=== PATIENT | female | born 1970 | race Caucasian/White ===

== ENCOUNTER 2019-04-07 10:35 | Day surgery (SDC) | payer BC, OTHER ==
--- NOTE | 2019-04-07 09:51 | PCM.PREANE ---
Preanesthetic Assessment - Anesthesia/Transfusion/Family Hx Anesthesia History: Prior Anesthesia Without Reaction Family History of Anesthesia Reaction: No Transfusion History: No Prior Transfusion(s) Intubation History: Unknown - Review of Systems General: No Symptoms, Fatigue Pulmonary: No Symptoms (Smoker: 1ppd times 30 years(Quit Date: 03/22/2019)- nicotine patch on.) Cardiovascular: No Symptoms Gastrointestinal: No Symptoms (GERD-on prilosec) Neurological: No Symptoms (mid back discomfort noted on occasion: back muscles.) Other: Reports: None, Throat Pain (2/10), Neck Pain (3/10) - Physical Assessment NPO Status Date: 04/06/19 NPO Status Time: 22:00 Vital Signs: HR:79 BP:114/47 Resp:16 Sat:97% Temp:98.5 Height: 1.6 m Weight: 58.513 kg ASA Class: 2 Mental Status: Alert & Oriented x3 Airway Class: Mallampati = 2 Dentition: Reports: Normal Dentition, Caries Thyro-Mental Finger Breadths: 3 Mouth Opening Finger Breadths: 3 (History of TMJ/jaw surgery) ROM/Head Extension: Full Lungs: Clear to Auscultation, Normal Respiratory Effort Cardiovascular: Regular Rate, Regular Rhythm, No Murmurs - Lab Values: All labs reviewed and noted and within acceptable ranges to proceed with scheduled procedure. - Allergies Allergies/Adverse Reactions: Allergies Allergy/AdvReac Type Severity Reaction Status Date / Time No Known Allergies Allergy Verified 04/04/19 13:54 - Anesthesia Plan Pre-Op Medication Ordered: None - Acknowledgements Anesthesia Type Planned: MAC Pt an Appropriate Candidate for the Planned Anesthesia: Yes Alternatives and Risks of Anesthesia Discussed w Pt/Guardian: Yes Pt/Guardian Understands and Agrees with Anesthesia Plan: Yes PreAnesthesia Questionnaire - Past Health History Medical/Surgical History: Denies Medical/Surgical History Cardiovascular History: Reports: None Respiratory History: Reports: None Gastrointestinal History: Reports: GERD Genitourinary History: Reports: None [employer]PERATOR History: Reports: None Musculoskeletal History: Reports: None Neurological History: Reports: None Psychiatric History: Reports: None Endocrine/Metabolic History: Reports: None Hematologic History: Reports: None Immunologic History: Reports: None Oncologic (Cancer) History: Reports: None Dermatologic History: Reports: None - Past Surgical History Head Surgeries/Procedures: Reports: None HEENT Surgical History: Reports: Oral Surgery, Other (See Below) Other HEENT Surgeries/Procedures: tmj surgery with jaw reconstruction Cardiovascular Surgical History: Reports: None Respiratory Surgical History: Reports: None GI Surgical History: Reports: None Female Surgical History: Reports: Breast Biopsy Male Surgical History: Reports: None Endocrine Surgical History: Reports: None Neurological Surgical History: Reports: None Musculoskeletal Surgical History: Reports: None Oncologic Surgical History: Reports: None Dermatological Surgical History: Reports: None - SUBSTANCE USE Smoking Status *Q: Current Every Day Smoker Recreational Drug Use History: No - HOME MEDS Home Medications: Home Meds Nicotine [Nicotine Patch] 21 mg TOP DAILY 04/04/19 [History] Omeprazole 40 mg PO DAILY 04/04/19 [History] Triamcinolone Acetonide [Triamcinolone Acetonide 0.025%] 1 dose TOP BID [History] - CURRENT (IN HOUSE) MEDS Current Meds: Current Medications Benzocaine (Hurricaine 20% [place]) 0 ml MUCMEM ASDIRECTED PRN PRN Reason: EGD Stop: 04/07/19 18:00 Lactated Ringer's (Ringers, Lactated) 1,000 mls @ 125 mls/hr IV ASDIRECTED SAYRA Stop: 04/07/19 23:00 Lidocaine/Sodium Bicarbonate (Buffered Lidocaine 1% In Ns 8.4%) 0.25 ml IDERM ONETIME PRN PRN Reason: Prior to IV Start Stop: 04/07/19 18:00 Sodium Chloride (Saline Flush) 10 ml FLUSH ASDIRECTED PRN PRN Reason: Keep Vein Open Stop: 04/07/19 18:00 Discontinued Medications Lidocaine HCl (Xylocaine-Mpf 1%) Confirm Administered Dose 4 mls @ as directed .ROUTE .STK-MED ONE Stop: 04/07/19 08:54 Propofol (Diprivan 20 Ml) Confirm Administered Dose 200 mg .ROUTE .STK-MED ONE Stop: 04/07/19 08:54
[~2019-04-07 10:35] MED LIST: Benzocaine 20% Oral Spray 59.2 ML Canister MUCMEM PRN; Lactated Ringers 1,000 ML IV SCH; Lidocaine 1% 4 ML ONE; Lidocaine 1%/Sod Bicarbonate in NS 8.4% 1 ML Syringe IDERM PRN; Propofol 200 MG/20 ML SDV ONE; Sodium Chloride 0.9% 10 ML Syringe FLUSH PRN
--- NOTE | 2019-04-07 12:16 | PCM.POSTAN ---
POST ANESTHESIA ASSESSMENT - MENTAL STATUS Mental Status: Alert - VITAL SIGNS Vital Signs: Last Vital Signs 85/66 98 84 16 97.2 Temp 36.9 C 04/07/19 10:50 Pulse 79 04/07/19 10:50 Resp 16 04/07/19 10:50 BP 114/47 L 04/07/19 10:50 Pulse Ox 97 04/07/19 10:50 - RESPIRATORY Respiratory Status: Respiratory Rate WNL, Airway Patent, O2 Saturation Stable - CARDIOVASCULAR CV Status: Pulse Rate WNL, Blood Pressure Stable - GASTROINTESTINAL GI Status: No Symptoms - PAIN Pain Score: 0 - POST OP HYDRATION Hydration Status: Adequate & Stable
[2019-04-07 12:40] VITALS: BP 98/74; PULSE 68
--- NOTE | 2019-04-07 13:07 | PROC ---
DATE OF OPERATION: 04/07/2019 SURGEON: Ryan Rodríguez MD PREOPERATIVE DIAGNOSES: 1. Heartburn. 2. Sore throat. POSTOPERATIVE DIAGNOSES: 1. Mild gastritis. 2. Small hiatal hernia. 3. Mild esophagitis. OPERATION PERFORMED: Esophagogastroduodenoscopy with biopsies. ESTIMATED BLOOD LOSS: Minimal. INDICATIONS AND CONSENT: The patient is a 48-year-old female who started having some persistent sore throat especially when supine at night. The patient also has been having some mild dysphagia without choking, was evaluated in clinic, and EGD was recommended for evaluation. Risks, benefits, and alternatives including perforation and bleeding were discussed with the patient, and informed consent was obtained. DESCRIPTION OF PROCEDURE: The patient was taken to the operating room, placed in left lateral decubitus position. Following induction of anesthesia, a time-out was performed. Then, the scope was advanced through the mouth. Vocal cords in the throat were observed and did not appear to be inflamed. The scope was passed into the esophagus, which appeared fairly normal until we got to distal esophagus, which had mild esophagitis. The Z-line was at 32 cm from the incisors and appeared to be regular and normal. The scope was advanced all the way down to the second portion of the duodenum, which was normal and the bulb was normal as well. Upon withdrawal, the antrum seemed to be diffusely inflamed with mild erythema. Therefore, biopsies were taken here for H. pylori examination. Upon retroflexion, we observed a small hiatal hernia of about 3 cm to 4 cm. There were no Nicolas ulcers. Withdrawal of the scope down back to the distal esophagus. We performed biopsies of the GE junction with cold forceps in the distal esophagus, with cold forceps due to mild inflammation of the distal esophagus. Then, upon withdrawal since the patient was complaining of dysphagia, feeling like there was some lump in her upper chest, we biopsied the mid esophagus as well for examination. Then, the scope was advanced back into the stomach. All air was suctioned out, and the scope was withdrawn. EBL was minimal. The patient tolerated the procedure well. At the end of the procedure, the patient was awoken and taken to the PACU in stable condition. The patient will continue to take Prilosec and come back to clinic in 2 weeks for discussion about pathology and further followup. MMODAL /[id number]
== END 2019-04-07 12:52 | disposition home or self-care (01) ==
LOC: JD.SDS 10:35
PROVIDERS: ATTEND Surgery
DX: K29.70 Gastritis, unspecified, without bleeding (principal); K21.0 Gastro-esophageal reflux disease with esophagitis; K44.9 Diaphragmatic hernia without obstruction or gangrene; Z87.891 Personal history of nicotine dependence
CPT/HCPCS: 43239; 81025; A9270; J2001; J2704; J7120; 00731